=== PATIENT | female | born 1935 | race Caucasian/White ===

== ENCOUNTER 2024-04-06 14:43 | Outpatient (CLI) | payer MEDICARE | END 2024-04-06 23:59 | disposition home or self-care (01) | LOC: MRI 14:43 | PROVIDERS: ATTEND Internal Medicine | DX: S32.010A Wedge compression fracture of first lumbar vertebra, initial encounter for closed fracture (principal); I10 Essential (primary) hypertension; M54.9 Dorsalgia, unspecified; M51.17 Intervertebral disc disorders with radiculopathy, lumbosacral region; M47.27 Other spondylosis with radiculopathy, lumbosacral region; M48.07 Spinal stenosis, lumbosacral region; M43.16 Spondylolisthesis, lumbar region; X58.XXXA Exposure to other specified factors, initial encounter; Y93.89 Activity, other specified; Y92.89 Other specified places as the place of occurrence of the external cause; Y99.8 Other external cause status | CPT/HCPCS: 71046; 72148 ==